=== PATIENT | male | born 1960 | race Caucasian/White ===

== ENCOUNTER 2024-03-16 18:54 | Emergency (ER) | payer SELFPAY ==
[2024-03-16 19:00] VITALS: BP 158/88
[2024-03-16 19:03] VITALS: BP 158/88; BMI 25.6
[2024-03-16] MEDS: NSS 500 IV (19:15)
[2024-03-16 19:23] LABS: % Basophils 0.4 % (0-2); % Eosinophils 0.4 % (0-6); % Immature Granulocytes 0.6 % (0-0.5); % Lymphocytes 3.3 % (20.5-51.1); % Monocytes 6.2 % (1.7-9.3); % Neutrophils 89.1 % (42.2-75.2); Absolute Basophils 0.1 10^3/uL (0-0.2); Absolute Eosinophils 0.1 10^3/uL (0-0.7); Absolute Immature Granulocytes 0.1 10^3/uL (0-0.05); Absolute Lymphocytes 0.5 10^3/uL (1.2-3.4); Absolute Monocytes 0.9 10^3/uL (0.1-0.6); Absolute Neutrophils 12.2 10^3/uL (1.4-6.5); Hematocrit 37.1 % (39.0-52.0); Hemoglobin 12.6 g/dL (13.0-18.0); Mean Corpuscular Hgb 31.3 pg (27.0-31.0); Mean Corpuscular Volume 92.1 fL (80.0-94.0); Mean Platelet Volume 9.9 fL (7.4-10.4); Nucleated Red Blood Cells % 0 % (-); Platelet Count 184 10^3/uL (130-400); Red Blood Cell Count 4.03 10^6/uL (4.70-6.10); Red Cell Dist. Width 13.3 % (11.5-14.5); White Blood Cell Count 13.7 10^3/uL (4.8-10.8)
[2024-03-16 19:38] LABS: COVID-19 Antigen Negative (Negative)
[2024-03-16 19:39] LABS: Lactic Acid 1.7 mmol/L (0.7-2.0)
[2024-03-16] MEDS: TYLENOL 1000 MG PO (19:39)
[2024-03-16 19:44] LABS: ALT (SGPT) 20 U/L (0-50); AST (SGOT) 20 U/L (17-59); Albumin 3.7 g/dl (3.5-5.0); Alkaline Phosphatase 49 U/L (38-126); Blood Urea Nitrogen 15 mg/dl (9-20); Calcium 8.1 mg/dl (8.4-10.2); Carbon Dioxide 26 mmol/L (22-30); Chloride 105 mmol/L (98-107); Estimated Creatinine Clearance 85 ml/min; Glucose 116 mg/dl (70-99); Sodium 138 mmol/L (135-145); Total Bilirubin 0.4 mg/dl (0.2-1.3); Total Protein 5.7 g/dl (6.3-8.2); eGFR > 60.00
[2024-03-16 19:50] LABS: Potassium 3.9 mmol/L (3.5-5.1)
[2024-03-16 20:00] VITALS: BP 143/81
--- NOTE | 2024-03-16 20:31 | ED.GENMED ---
History of Present Illness
General
Chief Complaint: Headache
Source: patient
Exam Limitations: none
Time Seen by Provider: 03/16/24 18:57
Nursing documentation reviewed up to this point in time: agreed with
History of Present Illness
History of Present Illness:
The patient is a generally well and healthy 63-year-old man who reports that at around 11 AM today he developed a mild headache and fatigue. Patient reports that he fell asleep and took a nap. When he woke up his headache was gone but he continued
to feel fatigued. Patient reports that this evening he developed shaking chills and his daughter grew concerned because he seemed short of breath. She then called 911. Patient reports that he now feels so much better. He no longer has a
headache. He denies rash. He denies sore throat, chest pain or shortness of breath. Patient found to have a low-grade fever on arrival. He denies sick contacts. Patient reports he is also felt intermittently nauseous today but denies any
vomiting or diarrhea.
Past History
Past History
ED Past Medical History: Other (Celiac disease)
ED Past Surgical History: Other (Bowel surgery)
Social History
Tobacco: Non-smoker
Alcohol: None
Drug: None
Personal: Other
Living: with family
Employment: Other
Family History
Family History: Other
Review of Systems
Review of Systems
Allergies reviewed?: Yes
Other source history: family
All Other Systems: ROS reviewed and negative except as documented in HPI and ROS
Constitutional: Reports fever, fatigue and chills
EENT: Reports no symptoms
Respiratory: Reports trouble breathing (Daughter reports that patient seemed to be rapidly breathing but patient denies all chest pain, shortness of breath and trouble breathing.)
Cardiac: Reports no symptoms
ABD/GI: Reports nausea and anorexia
: Reports no symptoms
Musculoskeletal: Reports no symptoms
Skin: Reports no symptoms
Neurological: Reports no symptoms
Endocrine: Reports no symptoms
Hematologic/Lymphatic: Reports no symptoms
Psychiatric: Reports no symptoms
Phy Exam
Physical Exam
Physical Exam:
Physical Exam
General: no apparent distress, not acutely ill. Smiling, nontoxic
Neck: supple. no meningeal signs. normal psoterior pharynx. No cervical lymphadenopathy. No pharyngeal erythema or exudate
Heart: Tachycardic, no murmur
Lungs: no acute respiratory distress. clear bilaterally
Abdomen: normal bowel sounds. not tender. no CVAT
Neuro: alert and oriented. no focal neurological deficits
Skin: no rash
Psychiatric: well kept. interactive and cooperative
Extremities: no edema. no calf tenderness. negative homans. good distal pulses
Course
Orders/Labs/Results
Orders:
Orders
03/16/24 19:10
CMP [Comprehensive Metabolic Panel] Urgent
COVID-19 Antigen Urgent
Source: Nasal Swab
Complete Blood Count/With Diff Urgent
Influenza A+B Rapid Molecular Urgent
BONG Source: Nasal Swab
Specimen Description:
03/16/24 19:15
0.9% Sodium Chloride 500 ml [Nss] 500 ml IV BOLUS
03/16/24 19:17
Lactate Level [Lactic Acid] Urgent
03/16/24 19:35
Acetaminophen [Tylenol] 1,000 mg PO NOW STA
03/16/24 20:07
CR Chest - 2 Views Urgent
Comment:
Reason For Exam: fever
Abnormal Lab Results
03/16/24
19:10
WBC 13.7 H 10^3/uL
(4.8-10.8)
RBC 4.03 L 10^6/uL
(4.70-6.10)
Hgb 12.6 L g/dL
(13.0-18.0)
Hct 37.1 L %
(39.0-52.0)
MCH 31.3 H pg
(27.0-31.0)
Abs Immat Gran (auto) 0.1 H 10^3/uL
(0-0.05)
Absolute Neuts (auto) 12.2 H 10^3/uL
(1.4-6.5)
Absolute Lymphs (auto) 0.5 L 10^3/uL
(1.2-3.4)
Absolute Monos (auto) 0.9 H 10^3/uL
(0.1-0.6)
Immature Gran % 0.6 H %
(0-0.5)
Neutrophils % 89.1 H %
(42.2-75.2)
Lymphocytes % 3.3 L %
(20.5-51.1)
Glucose 116 H mg/dl
(70-99)
Calcium 8.1 L mg/dl
(8.4-10.2)
Total Protein 5.7 L g/dl
(6.3-8.2)
03/16/24 19:10
03/16/24 19:10
Vital Signs
Initial and Last Documented VS:
Initial Vital Signs
Temp Pulse Resp BP Pulse Ox
99.7 F 118 15 158/88 97
03/16/24 19:03 03/16/24 19:03 03/16/24 19:03 03/16/24 19:03 03/16/24 19:03
Last Documented Vital Signs
Temp Pulse Resp BP Pulse Ox
100.1 F 118 15 158/88 97
03/16/24 19:19 03/16/24 19:03 03/16/24 19:03 03/16/24 19:03 03/16/24 19:03
MDM/Problems Addressed
Differential Diagnosis Includes:
COVID, flu, pneumonia
MDM/Problems Addressed:
Patient presents with acute fever and chills and resolved headache
Acute Exacerbation and/or Progression of Chronic Illness:
Patient is acutely hypertensive, likely due to fever and being tachycardic
Acute Exacerbation and/or Progression of Chronic Illness: HTN
*Radiology
Radiology exam reviewed: preliminary read by ED provider (Chest x-ray read by me. No acute disease) and radiology read reviewed
*Pulse Oximetry
Patient hypoxic: no
*EKG
Interpreted by ED Provider?: NA
*Assistant Baseball Coach Interpretation
Rate: tachycardiac
Interpretation: abnormal
Rhythm: sinus
*Critical Care Note
Total Time (30-74mins, 75-104mins- exclusive of procedures): Not Applicable
Update Note
Update Note:
Patient shows no sign of toxicity or meningismus. His headache has been gone for hours. His lungs are clear and his chest x-ray is clear. He has no abdominal pain. I do not hear a heart murmur to suggest endocarditis. Patient encouraged to
follow-up with his primary care doctor if he still experiencing fever for another 1 to 2 days. There is no sign of pharyngitis
ED Attending Note
-
Portions of this chart may have been created with voice recognition software.� Occasional wrong word or��sound alike� substitutions may have occurred due to the inherent limitations of voice recognition software.
Discharge Plan
Departure
Patient Disposition: Home (Routine Discharge)
Date of Disposition: 03/16/24
Time of Disposition: 21:16
Patient with high blood pressure during this ER visit?: Yes
Condition: Good
Covid-19: Negative COVID-19
Discharge Problem:
Fever
Instructions: Fever, Adult ED, BLOOD PRESSURE
Referrals:
Silas Sutherland Jr., MD [Family Provider] -
Activity Restrictions/Additional Instructions:
Return for any severe abdominal pain, shortness of breath or persistent vomiting. If you still have a fever in 48 hours, please follow-up with your primary care doctor.
Please take 1000 mg Tylenol every 4-6 hours for fever and drink lots of fluids to keep yourself hydrated
Interventions
Interventions:
*Risk Screen - Suicide Last Done: 03/16/24 19:03
*General Assessment Last Done: 03/16/24 19:03
*Neglect/Abuse Screening Last Done: 03/16/24 19:03
ED- Fall Risk Assessment Last Done: 03/16/24 19:20
*ED COVID-19 Vaccine History Last Done: 03/16/24 19:03
ED- Neurological Assessment Last Done: 03/16/24 19:20
Discharge Date and Time
Print Language: TUVALU[place]
--- NOTE | 2024-03-16 20:39 | EDRN ---
Patient ambulated to an from the restroom, call escudero in reach family at bedside no complaints at this time.
== END 2024-03-16 21:39 | disposition home or self-care (01) ==
LOC: EMR 18:54
PROVIDERS: EMERGENCY PHYSICIAN Emergency Medicine; FAMILY PHYSICIAN Family Medicine
DX: R50.9 Fever, unspecified (principal); I10 Essential (primary) hypertension; R03.0 Elevated blood-pressure reading, without diagnosis of hypertension; Z11.52 Encounter for screening for COVID-19
CPT/HCPCS: 99284; 96360; 71046; 80053; 83605; 85025; 87502; 87811

== ENCOUNTER 2024-03-16 22:32 | Emergency (ER) | payer SELFPAY ==
[2024-03-16 22:39] VITALS: BP 116/69
[2024-03-16] MEDS: MOTRIN 400 MG PO ×2 (22:53→22:54)
[2024-03-17 03:17] VITALS: BMI 25.8
[2024-03-17 03:19] VITALS: BP 103/69
--- NOTE | 2024-03-17 03:44 | ED.GENMED ---
History of Present Illness
<Beka Richardson DO, Resident - Last Filed: 03/17/24 05:22>
General
Chief Complaint: Fever
Source: patient and records
Time Seen by Provider: 03/17/24 03:27
History of Present Illness
History of Present Illness:
63 male presents to the emergency room for second episode of reported fever. Patient was seen approximately 4 to 5 hours prior and was informed he likely has a viral illness, was given Motrin, discharged and encouraged to follow-up with PCP. They
report back to the ER because they report that he was still having a fever and chills at home. COVID and flu were negative previously, chest x-ray demonstrated no acute disease, patient has no urinary symptoms, lactic acid was within normal limits.
Patient reports he had 1 episode of nausea with no vomiting, was tachycardic at home and he reports the symptoms started about 5 PM yesterday.
Past History
<Beka Richardson DO, Resident - Last Filed: 03/17/24 05:22>
Past History
ED Past Medical History: Other (Celiac disease)
ED Past Surgical History: Other (Bowel surgery)
Social History
Tobacco: Non-smoker
Alcohol: None
Drug: None
Personal: Other
Living: with family
Employment: Other
Family History
Family History: Other
Review of Systems
<Beka Richardson DO, Resident - Last Filed: 03/17/24 05:22>
Review of Systems
Constitutional: Reports fever
Respiratory: Reports no symptoms; Denies cough
Cardiac: Reports no symptoms
ABD/GI: Reports nausea
: Reports no symptoms; Denies dysuria, frequency or urgency
Musculoskeletal: Reports no symptoms
Phy Exam
<Beka Richardson DO, Resident - Last Filed: 03/17/24 05:22>
General Physical Exam
General Presentation: well appearing and no apparent distress
Cardiovascular Exam
Cardiovascular Exam: no edema, no murmur and tachycardia
Pulmonary Exam
Pulmonary Exam: lungs clear, no respiratory distress, no crackles and no wheezing
Gastrointestinal Exam
Gastrointestinal Exam: non tender, soft and non distended
Neurological Exam
Neurological Exam: alert, oriented x3 and speech normal
Course
<Beka Richardson DO, Resident - Last Filed: 03/17/24 05:22>
Orders/Labs/Results
Orders:
Orders
03/16/24 22:48
Ibuprofen [Motrin] 400 mg .ROUTE .STK-MED ONE
Ondansetron Orally Disint [Zofran Odt (Orally Disintegrating)] 4 mg .ROUTE .STK-MED ONE
03/16/24 22:49
Ibuprofen [Motrin] 400 mg .ROUTE .STK-MED ONE
03/16/24 22:53
Ibuprofen [Motrin] 400 mg PO NOW STA
03/16/24 22:54
Ibuprofen [Motrin] 400 mg PO NOW STA
03/17/24 03:42
Encourage PO Hydration-Treatme ONCE
Acetaminophen [Tylenol] 650 mg PO NOW STA
03/17/24 04:01
Urinalysis Reflex To Culture Urgent
Date Specimen was Collected: 03/17/24
Time Specimen was Collected: 03:46
Urine Microscopic Reflex Cult Urgent
Urine Culture Urgent
BONG Source: U
Specimen Description:
Date Specimen was Collected: 03/17/24
Time Specimen was Collected: 03:46
03/17/24 05:16
Nitrofurantoin Monohydrate [Macrobid] 100 mg PO NOW STA
Abnormal Lab Results
03/17/24
04:01
Leukocyte Esterase Rfl 2+ A
(Negative)
Urine WBC (Reflex) >100 A /HPF
(0-5)
Urine Bacteria (Reflex) Many A
(Negative)
Vital Signs
Initial and Last Documented VS:
Initial Vital Signs
Temp Pulse Resp BP Pulse Ox
99.4 F 138 18 116/69 99
03/16/24 22:39 03/16/24 22:39 03/16/24 22:39 03/16/24 22:39 03/16/24 22:39
Last Documented Vital Signs
Temp Pulse Resp BP Pulse Ox
98.1 F 90 20 103/69 96
03/17/24 03:19 03/17/24 03:19 03/17/24 03:19 03/17/24 03:19 03/17/24 03:19
<Joceline Wyatt, DO - Last Filed: 03/17/24 05:44>
Orders/Labs/Results
Orders:
Orders
03/16/24 22:48
Ibuprofen [Motrin] 400 mg .ROUTE .STK-MED ONE
Ondansetron Orally Disint [Zofran Odt (Orally Disintegrating)] 4 mg .ROUTE .STK-MED ONE
03/16/24 22:49
Ibuprofen [Motrin] 400 mg .ROUTE .STK-MED ONE
03/16/24 22:53
Ibuprofen [Motrin] 400 mg PO NOW STA
03/16/24 22:54
Ibuprofen [Motrin] 400 mg PO NOW STA
03/17/24 03:42
Encourage PO Hydration-Treatme ONCE
Acetaminophen [Tylenol] 650 mg PO NOW STA
03/17/24 04:01
Urinalysis Reflex To Culture Urgent
Date Specimen was Collected: 03/17/24
Time Specimen was Collected: 03:46
Urine Microscopic Reflex Cult Urgent
Urine Culture Urgent
BONG Source: U
Specimen Description:
Date Specimen was Collected: 03/17/24
Time Specimen was Collected: 03:46
03/17/24 05:16
Nitrofurantoin Monohydrate [Macrobid] 100 mg PO NOW STA
Abnormal Lab Results
03/17/24
04:01
Leukocyte Esterase Rfl 2+ A
(Negative)
Urine WBC (Reflex) >100 A /HPF
(0-5)
Urine Bacteria (Reflex) Many A
(Negative)
Vital Signs
Initial and Last Documented VS:
Initial Vital Signs
Temp Pulse Resp BP Pulse Ox
99.4 F 138 18 116/69 99
03/16/24 22:39 03/16/24 22:39 03/16/24 22:39 03/16/24 22:39 03/16/24 22:39
Last Documented Vital Signs
Temp Pulse Resp BP Pulse Ox
98.1 F 90 20 103/69 96
03/17/24 03:19 03/17/24 03:19 03/17/24 03:19 03/17/24 03:19 03/17/24 03:19
<Beka Richardson DO, Resident - Last Filed: 03/17/24 05:22>
MDM/Problems Addressed
Differential Diagnosis Includes:
Viral illness, fever, UTI, anxiety, tachycardia
MDM/Problems Addressed:
63 male presents for second visit to the ER approximately 4 to 5 hours after being discharged for what was worked up as a viral illness
Patient reports his symptoms did not resolve, reports he still having a fever and tachycardia
Reports Tmax of 106 at home, have my doubts about accuracy of this information
Chest x-ray recent visit demonstrated no acute disease and chest, patient has no symptoms of upper respiratory illness, no cough, no shortness of breath
Patient has no urinary symptoms, denies burning, no frequency, no cloudiness
Lactic acid was within normal limits, COVID and flu negative
Previous labs demonstrate slight leukocytosis 13.7, chemistry within normal limits
On physical exam, patient resting comfortably, breathing room air, no respiratory distress. Heart is slightly tachycardic, no murmurs. Abdomen benign.
UA was not checked on previous visit, will check UA on this visit
UA demonstrates +2 leukocyte esterase, greater than 100 WBCs with many bacteria, patient is not endorsing any symptoms however he does have a fever
Will initiate treatment with oral nitrofurantoin twice daily for 7 days
Will give one-time dose nitrofurantoin in emergency department
Patient reports never having any allergies to antibiotics in the past
Symptomatic management with p.o. Tylenol
Encourage p.o. intake of fluids
Encourage importance of follow-up with PCP
Encouraged symptomatic management with p.o. Tylenol and ibuprofen at home
<Beka Richardson DO, Resident - Last Filed: 03/17/24 05:22>
*Critical Care Note
Total Time (30-74mins, 75-104mins- exclusive of procedures): Not Applicable
ED Attending Note
<Beka Richardson DO, Resident - Last Filed: 03/17/24 05:22>
-
Portions of this chart may have been created with voice recognition software.� Occasional wrong word or��sound alike� substitutions may have occurred due to the inherent limitations of voice recognition software.
<Joceline Wyatt DO - Last Filed: 03/17/24 05:44>
ED Attending Note
Patient seen and examined by attending physician: Yes
I performed a history and physical exam of patient and discussed management with resident, I reviewed resident's note and agree with documented findings and plan of care.: Yes
ED Attending Note:
This is a 63-year-old gentleman who has no significant past medical history initially presented to this ED yesterday evening with complaints of generalized aches, chills, palpitations. Found to have low-grade fever, sinus tachycardia.
He continues to deny coughing or shortness of breath, no abdominal pain, no nausea no vomiting, no diarrhea or constipation.
Laboratory studies remarkable for mildly elevated white blood cell count, unremarkable chemistries, normal lactic acid, unremarkable chest x-ray. Diagnosed with viral syndrome and feeling improved after antipyretics.
He returns only several hours later with concern for recurrent fever, intermittent palpitations and generalized aches. He has taken no antipyretics.
No close contacts with similar symptoms. No recent travel.
He denies dysuria and urgency nor hematuria but does note some nocturia.
63-year-old gentleman appears his stated age, bright and alert, pleasant, overall nontoxic in appearance. Low-grade fever noted.
Oral mucosa is moist. Appears euvolemic.
Heart is regular rate and rhythm at 90. No murmur no rub.
Lungs are clear to auscultation. Respirations are easy nonlabored. No cough appreciated.
Abdomen is soft without appreciable tenderness. No CVA tenderness.
Patient noted to have intermittent fever since yesterday afternoon, intermittent shaking chills. No history of immunocompromise, no history of similar episodes in the past.
Concern for viral syndrome. Other consideration is a UTI.
Currently feeling markedly improved after dose of ibuprofen for fever.
Will check urinalysis.
If urinalysis suspicious for UTI will initiate a course of antibiotics.
Discussed importance of supportive measures for fever, Tylenol versus ibuprofen, staying well-hydrated on a daily basis, rest.
Discharge Plan
Departure
Patient Disposition: Home (Routine Discharge)
Date of Disposition: 03/17/24
Time of Disposition: 05:22
Patient with high blood pressure during this ER visit?: No
Condition: Good
Discharge Problem:
UTI (urinary tract infection)
Instructions: Urinary tract infection in adults - ED discharge instructions
Prescriptions:
New
nitrofurantoin monohyd/m-cryst [Macrobid] 100 mg capsule
100 mg PO BID 7 Days Qty: 14 0RF
Rx Instructions:
Take 1 tab by mouth twice a day for a total of 7 days
Referrals:
Silas Sutherland Jr., MD [Family Provider] - Call in 1-3 days for appt
Activity Restrictions/Additional Instructions:
Please call your primary care physician 1 to 3 days to schedule a follow-up appointment
Please take Macrobid 100 mg by mouth twice a day for a total of 7 days
Please use Tylenol as needed for elevated temperatures and pain no more than 4000 mg of Tylenol in a 24-hour period, okay to use Motrin for pain, no more than 600 mg in 8-hour.
Please drink plenty of fluids by mouth
Please return if your persistently vomiting and cannot keep fluids down, if Tylenol is unable to keep your temperature under control, or with any concerns
Interventions
Interventions:
*Risk Screen - Suicide Last Done: 03/17/24 03:25
*General Assessment Last Done: 03/17/24 03:23
*Neglect/Abuse Screening Last Done: 03/17/24 03:23
ED- Fall Risk Assessment Last Done: 03/17/24 03:25
*ED COVID-19 Vaccine History Last Done: 03/17/24 03:23
ED- Neurological Assessment Last Done: 03/17/24 03:25
ED-Skin Assessment Last Done: 03/17/24 03:25
Discharge Date and Time
Print Language: [id number]
[2024-03-17] MEDS: TYLENOL 650 MG PO (03:52)
[2024-03-17 04:15] LABS: Urine Albumin Trace (Neg - Trace); Urine Bilirubin Negative (Negative); Urine Character Slightly Cloudy (Clear); Urine Color Yellow; Urine Glucose Negative (Negative); Urine Ketone Negative (Negative); Urine Leukocyte 2+ (Negative); Urine Nitrite Negative (Negative); Urine Occult Blood Negative (Negative); Urine Specific Gravity 1.015 (<1.030); Urine Urobilinogen Negative (Neg - 1+)
[2024-03-17 04:52] LABS: Urine Squamous Cell >30 /LPF (Few)
[2024-03-17 04:53] LABS: Urine Urothelial Cell >30 /LPF (FEW)
[2024-03-17 05:00] LABS: Urine Bacteria Many (Negative); Urine Sperm Seen; Urine White Cell >100 /HPF (0-5)
[2024-03-17 05:30] VITALS: BP 110/72
[2024-03-17] MEDS: MACROBID 100 MG PO (05:43)
== END 2024-03-17 05:56 | disposition home or self-care (01) ==
LOC: EMR 22:32
PROVIDERS: EMERGENCY PHYSICIAN Emergency Medicine; FAMILY PHYSICIAN Family Medicine
DX: N39.0 Urinary tract infection, site not specified (principal)
CPT/HCPCS: 99283; 81003; 81015; 87077; 87086; 87186